=== PATIENT | female | born 1960 | race Caucasian/White ===

== ENCOUNTER 2023-08-11 02:39 | Emergency (ER) | payer OTHER, SELFPAY ==
[2023-08-11 02:39] VITALS: BP 149/69; PULSE 60; RESP 15; TEMP 36.2; O2SAT 97
--- NOTE | 2023-08-11 02:58 | EDS_ITS ---
HPI History of Present Illness Chief Complaint: Back Informant: patient Onset/Context/Timing Onset: Days Context: Gradual Onset Injury: lifting Timing: Continuous Quality: Dull and Aching Location: Thoracic Current Severity: Mild Maximum Severity: Mild Worsened by: improves with Movement, Bending and Lifting Relieved by: Remaining Still Associated Symptoms Associated Symptoms: Negative for Numbness, Tingling, Radiation to Right Leg, Radiation to Left Leg, Fever, Abdominal Pain, Dysuria, Unable to Ambulate, Unable to Transfer, Urinary Retention, Urinary Incontinence, Constipation or Fecal Incontinence Narrative Narrative: 62-year-old female 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 Patient is here from [place] doing el? work. 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 Been doing a lot of carrying and lifting of things. States since Tuesday she has had mid upper back pain. Worse with movement. Denies any fall injury or trauma. No weakness to her arms or legs. No prior back or neck surgery. Recent Illness/Hospitalization: No PFSH PFSH Medical History Thyroid disease Home Medications metaxalone 800 mg tablet 800 mg PO TID PRN muscle pain #21 tabs 08/11/23 [Rx Last Taken Unknown] Allergy/AdvReac Type Severity Reaction Status Date / Time diphenhydramine Allergy Shortness Verified 08/11/23 02:56 [From Benadryl] of breath Penicillins Allergy Rash Verified 08/11/23 02:56 AVELOX Allergy Shortness Uncoded 08/11/23 02:56 of breath Surgical History H/O: hysterectomy History of cholecystectomy Social History Smoking Status: Never smoker ROS ROS ED ROS Narrative No recent illness. Back pain. Review of Systems ROS Unobtainable: Denies due to encephalopathy Constitutional Constitutional ED: Denies chills or fever(s) Eyes Eyes: Denies blurry vision ENT ENT ED: Denies ear pain Cardiovascular Cardiovascular: Denies chest pain Respiratory/Chest Respiratory/Chest: Denies dyspnea Gastrointestinal Gastrointestinal: Denies abdominal pain Genitourinary Genitourinary ED: Denies dysuria or hematuria Musculoskeletal Musculoskeletal: Reports back pain; Denies arthralgias, myalgias or neck pain Integumentary Denies abscess Neurologic Neurologic: Denies headache(s) Psychiatric Psychiatric: Denies anxiety Endocrine Endocrinology: Denies cold intolerance Hematologic/Lymphatic Hematologic/Lymphatic: Denies easy bleeding or easy bruising Allergic/Immunologic Allergic/Immunologic ED: Denies mouth swelling or tongue swelling EXAM Physical Exam Narrative Exam Narrative: 62-year-old female no acute distress. Vital signs stable afebrile. HEENT exam unremarkable. Neck nontender. Lungs clear to auscultation bilaterally. Heart regular rhythm rate about 60 no murmur. Chest wall and ribs nontender. Abdomen soft nontender. Moving all 4 extremities. 5-5 lay health advocate strength. Dorsi plantarflexion intact. Calves nontender no edema no cords. No numbness or weakness. Back she has reproducible parathoracic soft tissue tenderness primarily on the right. No ecchymosis or bruising. No bony tenderness. No signs of trauma. Neurologically she is awake and alert. With normal motor strength and sensation. Const Vital Signs: 08/11/23 02:39 Temperature 97.1 F L Temperature Source Temporal Pulse Rate 60 Respiratory Rate 15 Blood Pressure 149/69 H Blood Pressure Mean 95 Pulse Ox 97 Oxygen Delivery Method Room Air Positive well nourished and well developed; Negative for cachectic, contractures or unkempt General Appearance ED: well developed and NAD; Negative for unkempt, cachectic, contractures or pallor Nutritional Appearance: Negative for cachectic HEENT Reports moist mucous membranes; Denies dry mucous membranes Negative for trauma or tenderness Mouth ED: No dry mucous membranes Mouth: No dry mucous membranes Eyes PERRL and EOMs intact bilaterally General Eye ED: Negative for pale conjunctiva or scleral icterus Neck no lymphadenopathy, supple and no JVD General: Negative for tenderness Thyroid: Negative for other Resp normal respiratory effort and clear to auscultation bilaterally Effort and Inspection: Negative for pain with movement Auscultation: Negative for rales, rhonchi or wheezes Cardio regular rate, regular rhythm, S1 normal heart sound, S2 normal heart sound and no murmurs Palpation: Negative for palpable S3 Rate: Negative for bradycardia or tachycardic Rhythm: Negative for abnormal rhythm Bruits: Negative for other GI normal to inspection, nondistended, normoactive bowel sounds, soft to palpation, non-tender, non-distended and no masses Inspection: Negative for abdominal distention Palpation: Negative for tender or guarding Back/Spine normal to inspection; Negative for no thoracic nor lumbar tenderness Back/Spine Narrative: Parathoracic soft tissue tenderness on the right more so than the left. No sign s of trauma. Pain with range of motion. Cervical Spine: Negative for cervical spine tenderness and Negative for paracervical muscle tenderness Thoracic Spine / Upper Back: paraspinal muscle tenderness Lumbar Spine / Lower Back: straight leg raise negative bilaterally; Negative for straight leg raise positive right Extremity normal to inspection and no clubbing, cyanosis or edema General Extremety ED: Negative for edema or tenderness General Extremity: Negative for edema Neuro oriented x3 and no sensory deficits noted Sensorium / Orientation: alert; Negative for confused, lethargic or stuporous Motor Exam: strength 5/5 throughout Psych mental status grossly normal Appearance: Negative for unkempt Attitude: No agitated Mood & Affect: Negative for depressed, sad or tearful Skin no rashes or lesions noted and no wounds General Skin Exam: Negative for jaundice or pallor Lesions: No lesion noted Rashes: No rashes noted Trauma: Negative for abrasion Wounds: Negative for wounds noted MDM MDM MDM Narrative Medical decision making narrative: 62-year-old complaining of atraumatic right-sided parathoracic back pain exam is consistent with muscle strain and spasm. She cannot do anti-inflammatories due to being on Xarelto. She does Tylenol for the pain. Started on Skelaxin 800 3 times daily. Given first dose here. Hot shower, warm bath and massage. Follow-up if not improving. Return if worse. She does not need any imaging or labs. Discharge Plan Triage Chief Complaint: Back ED Provider: Estrada Cano Dx/Rx/DC Orders Clinical Impression: Back strain, Back muscle spasm, Chronic anticoagulation, History of pulmonary embolism Instructions: ED Back Spasm, No Trauma Prescriptions: New metaxalone 800 mg tablet 800 mg PO TID PRN (Reason: muscle pain) Qty: 21 0RF Referrals: Rui Duffy MD [Med Staff - [employer]] - As Needed Activity Restrictions/Additional Instructions: Back spasms. Hot shower, warm bath, hot tub and massage. Tylenol for pain. Skelaxin as a muscle accident 1 pill 3 times a day for 1 week. You should start progressively improving in 3 to 4 days. Follow-up if not improving. Disposition Disposition: Home, Self Care
[2023-08-11] MEDS: Metaxalone 800 MG Tablet PO (03:11)
== END 2023-08-11 03:36 | disposition home or self-care (01) ==
LOC: ED 03:09
PROVIDERS: Emergency Provider Emergency Medicine; Visit Provider Emergency Medicine
DX: S39.012A Strain of muscle, fascia and tendon of lower back, initial encounter (principal); M62.830 Muscle spasm of back; Z79.01 Long term (current) use of anticoagulants; Z86.711 Personal history of pulmonary embolism; Z90.710 Acquired absence of both cervix and uterus; Z90.49 Acquired absence of other specified parts of digestive tract; X58.XXXA Exposure to other specified factors, initial encounter; Y93.89 Activity, other specified
CPT/HCPCS: 99283